=== PATIENT | male | born 1960 | race African-American/Black ===

== ENCOUNTER 2019-05-10 15:47 | Emergency (ER) | payer MEDICAID ==
[~2019-05-10] VITALS: Ht 182.9 cm; Wt 79.0 kg
[2019-05-10] MEDS ORDERED: TETANUS, DIPHTHERIA, PERTUSSIS VAC/PF 0.5ML (>7YR OLD) IM ONE (16:30)
[2019-05-10] MEDS ORDERED: MORPHINE SULFATE 10 MG/ML CPJ IM ONE (16:30)
[2019-05-10] MEDS ORDERED: KETOROLAC 15MG/ML VIAL IV ONE (18:30)
[2019-05-10] MEDS ORDERED: BACITRACIN ZINC OINT UDPKT TOP ONE (18:45)
[2019-05-10 20:26] VITALS: BP 133/87
== END 2019-05-10 20:53 | disposition home or self-care (01) ==
LOC: ER 15:47
DX: S09.8XXA Other specified injuries of head, initial encounter (principal); M25.561 Pain in right knee; V49.49XA Driver injured in collision with other motor vehicles in traffic accident, initial encounter; Y93.89 Activity, other specified; Y92.89 Other specified places as the place of occurrence of the external cause; Y99.8 Other external cause status; Z88.0 Allergy status to penicillin
CPT/HCPCS: 70450; 72100; 72125; 73080; 73560; 73610; 90471; 90715; 96372; 96374; 99284; J1885; J2270; L1830